=== PATIENT | female | born 1965 | race Two or more races ===

== ENCOUNTER 2023-01-28 16:05 | Outpatient (CLI) | payer SELFPAY | END 2023-01-28 16:06 | disposition EMS.NT | LOC: EMS 16:05 | DX: R45.89 Other symptoms and signs involving emotional state (principal) ==

== ENCOUNTER 2023-01-28 17:20 | Emergency (ER) | payer SELFPAY ==
[2023-01-28] MEDS ORDERED: LORazepam 0.5 MG TABLET PO STA (17:27)
[2023-01-28] MEDS ORDERED: ASPIRIN CHEW 81 MG TABLET PO STA (17:27)
--- NOTE | 2023-01-28 17:35 | ED Physician Documentation ---
History of Present Illness - Stated complaint Stated Complaint: ANXIOUS - Chief complaint Chief Complaint: Cardiac - History obtained from History obtained from: Patient, EMS - History of Present Illness Timing: Today Pain level max: 5 Pain level now: 5 - Additonal information Additional information: Patient is a 57-year-old female who is brought in by EMS. She states that she had chest pain today. She states that she moved here from [place] and is living with a [place] couple. She states that they were yelling at her today when she felt anxious and had chest pain. She called the ambulance who brought her here. She denies any cardiac history. She states she does not take any medications at home. She states that she feels very upset and like she cannot calm down. Nothing seems to make it better or worse. Does not change with breathing, palpation or movement. She states that usually the chest pain occurs when she is upset. No leg pain or swelling. She has been up here for about 3 months. Review of Systems Constitutional: denies: Fever, Chills GI: denies: Vomiting, Diarrhea Skin: denies: Rash Musculoskeletal: denies: Neck pain, Back pain Neurologic: denies: Headache PD PAST MEDICAL HISTORY - Past Medical History Past Medical History: No - Past Surgical History Past Surgical History: No - Present Medications Home Medications: Ambulatory Orders Medication Instructions Recorded Confirmed No Known Home Medications 01/28/23 01/28/23 - Allergies Allergies/Adverse Reactions: Allergies Allergy/AdvReac Type Severity Reaction Status Date / Time No Known Drug Allergies Allergy Verified 01/28/23 17:39 - Social History Does the pt smoke?: No Does the pt have substance abuse?: No - Family History Family history: reports: Non contributory PD ED PE NORMAL - Vitals Vital signs reviewed: Yes - General General: Alert and oriented X 3, Well developed/nourished, Other (Anxious appearing) - HEENT HEENT: PERRL, Moist mucous membranes - Neck Neck: Supple, no meningeal sign - Cardiac Cardiac: RRR, No murmur, Strong equal pulses - Respiratory Respiratory: No respiratory distress, Clear bilaterally - Abdomen Abdomen: Soft, Non tender, Non distended - Derm Derm: Warm and dry - Extremities Extremities: No edema, No calf tenderness / cord - Neuro Neuro: Alert and oriented X 3 - Psych Psych: Other (Anxious appearing) Results - Vitals Vitals: Vital Signs - 24 hr 04/30/23 04/30/23 17:31 19:52 Temperature 37.1 C 36.9 C Heart Rate 102 H 99 Respiratory 18 18 Rate Blood Pressure 175/130 H 152/98 H O2 Saturation 99 96 Oxygen O2 Source Room air - EKG (time done) 1803 EKG releavant findings:: EKG personally interpreted by author of this note. Relevant findings are: Rate: Rate (enter#) (96) Rhythm: NSR Hancock: Normal Intervals: Normal DE QRS: Normal Ischemia: Normal ST segments - Labs Labs: Laboratory Tests 01/28/23 01/28/23 01/28/23 17:34 17:34 17:34 WBC 10.3 RBC 5.25 Hgb 15.1 Hct 46.1 MCV 87.8 MCH 28.8 MCHC 32.8 RDW 12.2 Plt Count 317 MPV 10.6 Neut # (Auto) 7.2 H Lymph # (Auto) 2.4 Stevens # (Auto) 0.5 Eos # (Auto) 0.1 Baso # (Auto) 0.1 Absolute Nucleated RBC 0.00 Nucleated RBC % 0.0 Sodium 141 Potassium 3.3 L Chloride 105 Carbon Dioxide 25 Anion Gap 11.0 BUN 10 Creatinine 0.6 Estimated GFR (MDRD) 102 Glucose 114 H Calcium 9.1 Total Bilirubin 0.8 AST 24 ALT 11 Alkaline Phosphatase 86 Troponin I High Sens 13.3 Total Protein 8.4 H Albumin 4.4 Globulin 4.0 Albumin/Globulin Ratio 1.1 Lipase 35 - Rads (name of study) Chest x-ray Relevant Findings:: Final report received, See rad report PD Medical Decision Making - ED course Complexity details: reviewed results, re-evaluated patient, considered differential (No ST elevation TN, no aortic dissection, no PE, no tension pneumothorax, no aortic aneurysm), d/w patient ED course: Patient with atypical chest pain. No acute findings on chest x-ray, EKG or laboratory testing. Asymptomatic here. Feels better after Ativan. She does not want to return to the place she is staying. The [facility] room for her and her child, she is comfortable going there tonight. Community resources were given to her as well. She will follow-up with a director of social services tomorrow. Patient counseled regarding signs and symptoms for which I believe and urgent re-evaluation would be necessary. Patient with good understanding of and agreement to plan and is comfortable going home at this time This document was made in part using voice recognition software. While efforts are made to proofread this document, sound alike and grammatical errors may occur. Departure - Departure Disposition: 01 Home, Self Care Clinical Impression: Atypical chest pain Condition: Good Instructions: ED Chest Pain Atypical Unkn Cause Follow-Up: Your,doctor in 1 week [Other] Comments: Please follow-up with your doctor for further care. Please return if you worsen. Your testing is normal tonight. Discharge Date/Time: 01/28/23 20:10
[2023-01-28 17:39] LABS: BASOPHILS # (AUTO) 0.1 10^3/uL (0.0-0.1); BASOPHILS % (AUTO) 0.7 %; EOSINOPHILS # (AUTO) 0.1 10^3/uL (0.0-0.7); EOSINOPHILS % (AUTO) 0.7 %; HCT - HEMATOCRIT 46.1 % (37.0-47.0); HGB - HEMOGLOBIN 15.1 g/dL (12.0-16.0); LYMPHOCYTES # (AUTO) 2.4 10^3/uL (1.5-3.5); LYMPHOCYTES % (AUTO) 23.3 %; MEAN CORPUSCULAR HEMOGLOBIN 28.8 pg (27.0-31.0); MEAN CORPUSCULAR HGB CONC 32.8 g/dL (32.0-36.0); MEAN CORPUSCULAR VOLUME 87.8 fL (81.0-99.0); MEAN PLATELET VOLUME 10.6 fL (7.9-10.8); MONOCYTES # (AUTO) 0.5 10^3/uL (0.0-1.0); NEUTROPHILS # (AUTO) 7.2 10^3/uL (1.5-6.6); PLT - PLATELET COUNT 317 10^3/uL (130-450); RED BLOOD COUNT 5.25 10^6/uL (4.20-5.40); RED CELL DISTRIBUTION WIDTH 12.2 % (12.0-15.0); WHITE BLOOD COUNT 10.3 x10^3/uL (4.8-10.8)
[2023-01-28 17:53] LABS: ALBUMIN 4.4 g/dL (3.2-5.5); ALBUMIN/GLOBULIN RATIO 1.1 (1.0-2.2); BILIRUBIN,TOTAL 0.8 mg/dL (0.2-1.0); CALCIUM 9.1 mg/dL (8.5-10.3); CREATININE 0.6 mg/dL (0.4-1.0); POTASSIUM 3.3 mmol/L (3.5-5.0); TOTAL PROTEIN 8.4 g/dL (6.7-8.2)
--- NOTE | 2023-01-28 18:10 | XRAY Report ---
PROCEDURE: Chest 1 View X-Ray INDICATIONS: Chest Pain TECHNIQUE: One view of the chest was acquired. COMPARISON: None. FINDINGS: Surgical changes and devices: None. Lungs and pleura: No pleural effusions or pneumothorax. Lungs are clear. Mediastinum: Mediastinal contours appear normal. Heart size is normal. Bones and chest wall: No suspicious bony lesions. Age-appropriate degenerative changes are seen. O verlying soft tissues appear unremarkable. IMPRESSION: Portable chest within normal limits for age. Reviewed by: Justin Spaulding MD on 01/28/2023 5:08 PM BRADY Approved by: Justin Spaulding MD on 01/28/2023 5:08 PM BRADY Station ID: [id number]
[2023-01-28 19:54] VITALS: BP 152/98
== END 2023-01-28 20:10 | disposition home or self-care (01) ==
LOC: ED 17:20
DX: R07.89 Other chest pain (principal); Z59.02 Unsheltered homelessness
CPT/HCPCS: 36415; 71045; 80053; 83690; 84484; 85025; 93005; 99283; 99284; A9270